=== PATIENT | male | born 1955 | race Caucasian/White ===

== ENCOUNTER 2018-08-30 14:46 | Outpatient (CLI) | payer OTHER ==
--- NOTE | 2018-08-30 15:21 | RAD ---
PA AND LATERAL CHEST: History: Cough. FINDINGS: The heart size is enlarged. The lungs are well expanded without focal areas of consolidation, pneumot horaces, or pleural effusions. No lainey pulmonary edema is noted. There are degenerative changes in t he spine. IMPRESSION: Cardiomegaly. POS: [facility]
== END 2018-08-30 14:47 | disposition home or self-care (01) ==
LOC: BICRAD 14:46
PROVIDERS: ATTEND Physician Assistant
DX: R05 Cough (principal); I51.7 Cardiomegaly
CPT/HCPCS: 71046

== ENCOUNTER 2018-10-27 10:45 | Outpatient (CLI) | payer OTHER ==
--- NOTE | 2018-10-27 12:08 | RAD ---
2 VIEWS CHEST: Date: 10/27/18 COMPARISON: 08/30/18. HISTORY: Dyspnea. FINDINGS: 2 views of the chest show an enlarged but stable cardiomediastinal silhouette. There is no evidence o f consolidation, mass, or pleural effusion. Degenerative changes are seen in the spine. IMPRESSION: No evidence of acute cardiopulmonary disease. POS: [facility]
== END 2018-10-27 10:46 | disposition home or self-care (01) ==
LOC: RAD 10:45
PROVIDERS: ATTEND Internal Medicine
DX: R06.00 Dyspnea, unspecified (principal)
CPT/HCPCS: 71046

== ENCOUNTER 2018-11-05 20:30 | Outpatient (CLI) | payer OTHER | END 2018-11-05 20:31 | disposition home or self-care (01) | LOC: SLEEPLAB 20:30 | PROVIDERS: ATTEND Family Medicine | DX: G47.33 Obstructive sleep apnea (adult) (pediatric) (principal); R06.83 Snoring; I10 Essential (primary) hypertension; G47.10 Hypersomnia, unspecified; K21.9 Gastro-esophageal reflux disease without esophagitis; G47.00 Insomnia, unspecified; E66.9 Obesity, unspecified; Z68.38 Body mass index [BMI] 38.0-38.9, adult | CPT/HCPCS: 95811 ==

== ENCOUNTER 2019-04-19 09:06 | Outpatient (CLI) | payer OTHER ==
[2019-04-19 10:32] LABS: #Eosinphils 0.3 thou/uL (0.0-0.7); #Lymphocytes 1.2 thou/uL (1.20-3.40); #Monocytes 0.6 thou/uL (0.11-0.59); #Neutrophils 5.4 thou/uL (1.40-6.50); %Basophils 0.6 % (0.0-1.0); %Eosinophils 4.2 % (0.0-10.0); %Lymphocytes 16.3 % (21.0-51.0); %Monocytes 8.2 % (0.0-10.0); %Neutrophils 70.7 % (42.0-75.0); Hemoglobin 13.1 g/dL (14.0-18.0); Mean Corpuscular HGB CONC 33.5 g/dL (32.0-36.0); Mean Corpuscular Hemoglobin 28.7 pg (27.0-31.0); Mean Corpuscular Volume 85.6 fL (78.0-98.0); Mean Platelet Volume 7.7 fL (7.4-10.4); Platelet Count 223 thou/uL (130-400); RBC Distribution Width 13.5 % (11.5-14.5); Red Blood Cell (RBC) Count 4.56 mill/uL (4.70-6.10); White Blood Cell (WBC) Count 7.6 thou/uL (4.8-10.8)
[2019-04-19 10:42] LABS: Bacteria/HPF None Seen HPF (None Seen); Bilirubin Negative (Negative); Blood, Urine Trace (Negative); Clarity Clear (Clear); Glucose, Urine (Dipstick) Normal (Negative); Leukocyte 25 Leu/uL (Negative); Nitrite Negative (Negative); Protein, Urine (Dipstick) 30 mg/dL (Neg-Trace); RBC/HPF 0-3 HPF (0-3); Squamous Epithelial None Seen HPF (0-3); Urobilinogen Normal mg/dL (Less than 2)
[2019-04-19 10:49] LABS: Anion Gap 13 mmol/L (10-20); BUN (Urea Nitrogen) 27 mg/dL (8.4-25.7); Calc. Creatinine Clearance 0 mL/min (70-130); Carbon Dioxide 23 mmol/L (23-31); Chloride 109 mmol/L (98-107); Estimated GFR-MDRD 49; Glucose 109 mg/dL (80-115); Potassium 4.4 mmol/L (3.5-5.1); Sodium 141 mmol/L (136-145)
--- NOTE | 2019-04-19 11:05 | RAD ---
PA AND LATERAL VIEWS CHEST: HISTORY: Preop evaluation. FINDINGS: Comparison is made to the exam is made to the exam of 10/27/2018. The heart is enlarged but stable. The lungs are expanded without focal areas of consolidation, pneum othoraces, lainey pulmonary edema, or pleural effusions. Degenerative changes are present in the spin e. IMPRESSION: Stable exam. No radiographic evidence of acute cardiopulmonary process. POS: [facility]
== END 2019-04-19 09:07 | disposition home or self-care (01) ==
LOC: LABBT 09:06
PROVIDERS: ATTEND Orthopaedic Surgery
DX: Z01.818 Encounter for other preprocedural examination (principal); M17.11 Unilateral primary osteoarthritis, right knee
CPT/HCPCS: 71046; 80048; 81001; 85025; 85610; 87081; 93005; 93010

== ENCOUNTER 2019-05-01 08:04 | Day surgery (SDC) | payer OTHER ==
[2019-04-19 09:36] VITALS: BMI 39.0
[2019-05-01] MEDS ORDERED: Sodium Chloride 0.9% 100 ML ONE (08:49)
[2019-05-01] MEDS ORDERED: Tranexamic Acid 1,000 MG/10 ML VIAL ONE (08:49)
[2019-05-01] MEDS ORDERED: Zolpidem Tartrate 5 MG TAB PO PRN ×2 (09:27→13:27)
[2019-05-01] MEDS ORDERED: Promethazine HCl 25 MG/ML VIAL IM PRN ×3 (09:27→14:22)
[2019-05-01] MEDS ORDERED: Acetaminophen 325 MG TAB PO PRN (09:27)
[2019-05-01] MEDS ORDERED: HYDROcodone/Acetaminophen 10/325 mg Tablet PO PRN ×3 (09:27→13:27)
[2019-05-01] MEDS ORDERED: diphenhydrAMINE 25 MG CAP PO PRN (09:27)
[2019-05-01] MEDS ORDERED: Ondansetron PF 4 MG/2 ML Vial IVP PRN ×2 (09:27→13:27)
[2019-05-01] MEDS ORDERED: traMADol HCl 50 MG TAB PO PRN ×3 (09:27→13:27)
[2019-05-01] MEDS ORDERED: Fentanyl 100 MCG/2 ML VIAL ONE ×5 (10:01→14:26)
[2019-05-01] MEDS ORDERED: Midazolam HCl 2 mg/2 ml Vial ONE (10:01)
[2019-05-01] MEDS ORDERED: Ropivacaine 0.2% HCl/PF (40 MG/20 ML VIAL) ONE (11:12)
[2019-05-01] MEDS ORDERED: Ropivacaine 0.5% HCl/PF (150 MG/30 ML VIAL) ONE (11:12)
[2019-05-01] MEDS ORDERED: ePHEDrine 50 MG/ML VIAL ONE (12:44)
[2019-05-01] MEDS ORDERED: Dexamethasone 20 MG/5 ML VIAL ONE (12:44)
[2019-05-01] MEDS ORDERED: Rocuronium Bromide 10 MG/ML (10ML VIAL) ONE (12:44)
[2019-05-01] MEDS ORDERED: Ondansetron PF 4 MG/2 ML Vial ONE (12:44)
[2019-05-01] MEDS ORDERED: Lidocaine 1% PF 5 ML VIAL ONE (12:44)
[2019-05-01] MEDS ORDERED: PROPOFOL 200 MG/20 ML VIAL ONE (12:44)
[2019-05-01] MEDS ORDERED: Glycopyrrolate 0.2 MG/ML 5 ML SYRINGE ONE (12:44)
[2019-05-01] MEDS ORDERED: Ropivacaine HCl/PF 250 ML in Premix Bag 1 BAG NERVE BLCK SCH (13:27)
[2019-05-01] MEDS ORDERED: Fentanyl 100 MCG/2 ML VIAL IV PRN (13:28)
--- NOTE | 2019-05-01 13:41 | OP ---
DATE OF PROCEDURE: 05/01/2019 PREOPERATIVE DIAGNOSIS: End-stage tricompartmental osteoarthritis, right knee. POSTOPERATIVE DIAGNOSIS: End-stage tricompartmental osteoarthritis, right knee. PROCEDURE PERFORMED: Right cruciate sparing computer-assisted navigated cemented right total knee arthroplasty. PRODUCT DEVELOPMENT CONSULTANT: Mannie Pennington PA-C ANESTHESIA: General via LMA augmented with indwelling adductor canal and a single-shot anterior sciatic block. COMPONENTS USED: [facility] Triathlon size 5 cruciate sparing cemented femoral component with a size 5 primary cemented tibial base plate, 9 mm polyethylene fixed bearing insert, and A32 patella button. FINDINGS: End-stage severe degenerative tricompartmental disease, [id number] arthrosis, periarticular osteophyte formation, large serous effusion, and hypertrophic synovium. TOURNIQUET TIME: 57 minutes at 300 mmHg. INPUT: 1200 mL crystalloid. OUTPUT: None. No Camp placed. DRAINS: None. SPECIMENS: None. COMPLICATIONS: None. COUNTS: Correct. ESTIMATED BLOOD LOSS: Less than 100. INDICATION FOR SURGERY: Navi is a 63-year-old white male, who has had progressive right knee pain and problem with standing and walking for the last five to seven years. He has failed conservative management and elected to proceed with total knee arthroplasty as definitive treatment for his pain. PROCEDURE IN DETAIL: After informed consent was obtained in the preoperative holding area, the patient was taken to the operative suite where general anesthesia was induced. Once adequate level of general anesthesia was obtained, the patient was positioned and a well-padded tourniquet was placed around the right proximal thigh. The right lower extremity was then prepped and draped in the usual sterile fashion. Prior to exsanguination, a time-out was called and all members of the surgical team agreed upon site, surgeon, and patient. The extremity was then exsanguinated and the tourniquet was raised. A midline longitudinal incision was then made directly over the patella extending 2 fingerbreadths above the superior pole of the patella and 2 fingerbreadths inferior to the inferior patellar pole of the patella. Deeper subcutaneous layers were dissected sharply and local bleeding was controlled with Bovie electrocautery. A quad tendon longitudinal split was then made sharply and a median parapatellar arthrotomy was carried out both sharp and with Bovie electrocautery, carried down to 1 fingerbreadth medial to the tibial tubercle. The knee was then placed into flexion and the patella was everted nicely, and a copious fat pad ectomy was performed allowing for greater exposure of the tibia. The computer-assisted distal femoral fiducial was then placed and pinned firmly, and the distal femoral cutting guide was pinned firmly into place. The oscillating saw was then used to remove the appropriate amount of bone. The 4-in-1 cutting block was then placed on the distal femur and the oscillating saw was used to remove the appropriate amount of bone off the anterior, posterior, and chamfer cuts. After completion of bone cuts, the anterior cruciate ligament was resected sharply and the posterior cruciate ligament retractor was placed and the tibia was subluxed for better exposure. Partial meniscectomies were carried out, and the tibial computer-assisted fiducial was pinned, and the cutting guide was placed. Oscillating saw was then used to remove the bone, with Hohmann retractors used to take care and protect the collateral ligaments. After the tibial resection was performed, a laminar direct service worker was placed in between the freshened bone cuts. The knee placed at 90 degrees and further bilateral meniscectomies were carried out, and the curved osteotome and curettage were used to remove any excess bone spurs in the posterior compartment. The trial femoral component, tibial baseplate were placed with the appropriate polyethylene trial insert with an appropriate polyethylene spacer and patellar button. The knee was taken through full range of motion with flexion and extension from 0 to 90 degrees and patellar broach squarely in the trochlea without any squinting or subluxation noted. The knee was also stable to varus and valgus stressing at 0, 15, 45, and 90 degrees of flexion. The drawer was negative. All trial components were then removed and the keel punch was used to provide the appropriate defect in the tibia with a mallet. The freshened bone cuts were copiously irrigated with pulsatile lavage of about 1.5 L to remove all excess debris. The freshened bone cuts were then dried with suction and lap sponge. The knee was placed in flexion and retractors were placed to provide access to all bone cuts. Tobramycin-impregnated methyl methacrylate cement was then placed on the freshened bone cuts and implants which were malleted firmly into place. Curettage and Sheridan elevators were used to remove any excess bone cement. The knee was placed into full extension and the patellar button was placed under compression, and the cement was allowed to cure. Once completed, the components were again taken through full range of motion and copious irrigation of the knee was carried out with another liter of normal saline. All components were inspected fully with full range of motion and varus and valgus stressing. There was no laxity noted and full extension was observed clinically. Primary closure was accomplished with #2 interrupted Vicryl stitch of the arthrotomy defect. This was oversewn with a #2 running Quill barbed stitch. The gravitational platelet system was then injected into the arthrotomy prior to closure. The subcutaneous layer was then closed with a running 0 barbed Monocryl stitch and skin closure accomplished with a running subcuticular 3-0 Monocryl barbed Quill stitch and augmented with cement on the skin. Tourniquet was lowered. Good spontaneous return of distal pulses was noted clinically and a sterile dressing was applied to the incision. The procedure was terminated without any complications. The patient was awakened in the operative suite and the was removed, and the patient was taken to the recovery room in stable condition. Job ID: [id number]
--- NOTE | 2019-05-01 14:05 | RAD ---
Exam:2 views right knee HISTORY: Status post arthroplasty COMPARISON: None FINDINGS: Expected postoperative changes in the soft tissues. Right knee arthroplasty is noted. Align ment is near anatomic. IMPRESSION: Findings compatible with right knee arthroplasty.
[2019-05-01] MEDS ORDERED: Ondansetron HCl/PF 4 MG/2 ML Vial IVP PRN (14:22)
[2019-05-01] MEDS ORDERED: Promethazine HCl 25 MG/ML VIAL SLOW IVP PRN (14:22)
[2019-05-01] MEDS: Sodium Chloride 0.9% 1,000 ML IV SCH ×2 (15:00→20:51)
[2019-05-01] MEDS: Ketorolac Tromethamine 30 MG/ML VIAL IVP SCH ×2 (15:01→21:50)
[2019-05-01] MEDS ORDERED: CEFAZOLIN 2 GM in Premix Bag 1 BAG IVPB SCH (17:00)
[2019-05-01] MEDS: CEFAZOLIN 2 GM in Premix Bag 1 BAG IVPB SCH (20:44)
[2019-05-01] MEDS: Aspirin 81 mg Enteric Coated Tablet PO SCH (20:44)
[2019-05-01] MEDS: Senokot S 8.6-50 MG TAB PO SCH (20:46)
[2019-05-01] MEDS: Ferrous Gluconate 324 MG TAB PO SCH (20:47)
[2019-05-01] MEDS: HYDROcodone/Acetaminophen 10/325 mg Tablet PO PRN (21:48)
[2019-05-02] MEDS: CEFAZOLIN 2 GM in Premix Bag 1 BAG IVPB SCH (04:19)
[2019-05-02] MEDS: HYDROcodone/Acetaminophen 10/325 mg Tablet PO PRN ×4 (04:24→22:16)
[2019-05-02] MEDS: Sodium Chloride 0.9% 1,000 ML IV SCH ×2 (05:34→17:54)
[2019-05-02 05:59] LABS: Hemoglobin 11.5 g/dL (14.0-18.0); Mean Corpuscular HGB CONC 33.5 g/dL (32.0-36.0); Mean Corpuscular Hemoglobin 29.4 pg (27.0-31.0); Mean Corpuscular Volume 87.7 fL (78.0-98.0); Mean Platelet Volume 7.6 fL (7.4-10.4); Platelet Count 205 thou/uL (130-400); White Blood Cell (WBC) Count 12.1 thou/uL (4.8-10.8)
[2019-05-02] MEDS: Ketorolac Tromethamine 30 MG/ML VIAL IVP SCH ×3 (06:29→22:14)
[2019-05-02] MEDS: Multivitamin W/ Minerals 1 TAB PO SCH (09:04)
[2019-05-02] MEDS: Aspirin 81 mg Enteric Coated Tablet PO SCH ×2 (09:04→20:44)
[2019-05-02] MEDS: Losartan 25 MG TAB PO SCH (09:04)
[2019-05-02] MEDS: Ferrous Gluconate 324 MG TAB PO SCH ×2 (09:04→20:45)
[2019-05-02] MEDS: Senokot S 8.6-50 MG TAB PO SCH ×2 (09:04→20:45)
[2019-05-02] MEDS: Hydrochlorothiazide 25 MG TAB PO SCH (09:05)
[2019-05-03] MEDS: Sodium Chloride 0.9% 1,000 ML IV SCH ×2 (04:24→09:21)
[2019-05-03] MEDS: HYDROcodone/Acetaminophen 10/325 mg Tablet PO PRN ×3 (04:28→13:15)
[2019-05-03 05:06] LABS: Hemoglobin 10.6 g/dL (14.0-18.0); Mean Corpuscular HGB CONC 32.1 g/dL (32.0-36.0); Mean Corpuscular Hemoglobin 28.5 pg (27.0-31.0); Mean Corpuscular Volume 88.9 fL (78.0-98.0); Mean Platelet Volume 7.7 fL (7.4-10.4); Platelet Count 193 thou/uL (130-400); RBC Distribution Width 13.2 % (11.5-14.5); Red Blood Cell (RBC) Count 3.72 mill/uL (4.70-6.10); White Blood Cell (WBC) Count 9.1 thou/uL (4.8-10.8)
[2019-05-03] MEDS: Ketorolac Tromethamine 30 MG/ML VIAL IVP SCH (05:48)
[2019-05-03] MEDS: Aspirin 81 mg Enteric Coated Tablet PO SCH (09:15)
[2019-05-03] MEDS: Hydrochlorothiazide 25 MG TAB PO SCH (09:15)
[2019-05-03] MEDS: Ferrous Gluconate 324 MG TAB PO SCH (09:15)
[2019-05-03] MEDS: Senokot S 8.6-50 MG TAB PO SCH (09:16)
[2019-05-03] MEDS: Multivitamin W/ Minerals 1 TAB PO SCH (09:16)
[2019-05-03] MEDS: Losartan 25 MG TAB PO SCH (09:16)
[2019-05-03 12:16] VITALS: BP 159/90; TEMP 98
== END 2019-05-03 13:46 | disposition home or self-care (01) ==
LOC: SDC 08:04 → EDSTATUS 08:45 → SJJU 09:27 → SDC 05-03 13:46
PROVIDERS: ATTEND Orthopaedic Surgery
PROC: 0SRC0J9 Replacement of Right Knee Joint with Synthetic Substitute, Cemented, Open Approach (ICD-10-PCS; principal; 2019-05-01)
PROC: 8E0YXBZ Computer Assisted Procedure of Lower Extremity (ICD-10-PCS; principal; 2019-05-01)
DX: M17.0 Bilateral primary osteoarthritis of knee (principal); M25.761 Osteophyte, right knee; I10 Essential (primary) hypertension; G47.33 Obstructive sleep apnea (adult) (pediatric); E66.01 Morbid (severe) obesity due to excess calories; Z68.39 Body mass index [BMI] 39.0-39.9, adult; Z79.899 Other long term (current) drug therapy; Z88.8 Allergy status to other drugs, medicaments and biological substances; Z99.89 Dependence on other enabling machines and devices
CPT/HCPCS: 36415; 85027; C1713; C1776; J0690; J1100; J1885; J2001; J2250; J2405; J2704; J2795; J3010; J3370; J3490; J7050

== ENCOUNTER 2020-04-30 13:35 | Outpatient (CLI) | payer OTHER ==
--- NOTE | 2020-04-30 13:49 | RAD ---
2 views lumbar spine: 04/30/2020 COMPARISON: None HISTORY: Back pain with radiculopathy FINDINGS: No significant anterolisthesis or retrolisthesis is noted. There is bilateral facet hypertr ophy at the L3-4, L4-5, and L5-S1 levels. There is prominent right lateral osteophyte formation at L2-3. Lumbar pedicles appear intact on frontal imaging. No acute fracture. No acute osseous abnormality is seen. IMPRESSION: Multilevel degenerative change. No acute osseous abnormality.
== END 2020-04-30 13:36 | disposition home or self-care (01) ==
LOC: BICRAD 13:35
PROVIDERS: ATTEND Family Medicine
DX: M54.5 Low back pain (principal); M47.816 Spondylosis without myelopathy or radiculopathy, lumbar region
CPT/HCPCS: 72100

== ENCOUNTER 2021-09-24 14:21 | Outpatient (CLI) | payer MEDICARE, BC | END 2021-09-24 14:22 | disposition home or self-care (01) | LOC: DTY/OP 14:21 | PROVIDERS: ATTEND Family Medicine | DX: E11.22 Type 2 diabetes mellitus with diabetic chronic kidney disease (principal); N18.9 Chronic kidney disease, unspecified | CPT/HCPCS: 97802 ==

== ENCOUNTER 2021-09-28 10:53 | Outpatient (CLI) | payer MEDICARE, BC | END 2021-09-28 10:54 | disposition home or self-care (01) | LOC: BICRAD 10:53 | PROVIDERS: ATTEND Otolaryngology Plastic Surgery within the Head & Neck | DX: R05.3 Chronic cough (principal) | CPT/HCPCS: 71046 ==

== ENCOUNTER 2024-02-20 08:12 | Day surgery (SDC) | payer MEDICARE, BC ==
[2024-02-16 12:19] VITALS: BMI 37.6
[2024-02-16 13:08] LABS: Hematocrit 42.5 % (38.8-50.0); Hemoglobin 13.8 g/dL (13.5-17.5); Mean Corpuscular HGB CONC 32.5 g/dL (32.0-36.0); Mean Corpuscular Volume 86.4 fL (81.2-95.1); Platelet Count 252 10x3/uL (150-450); RBC Distribution Width 14.4 % (11.5-14.5); Red Blood Cell (RBC) Count 4.92 10x6/uL (4.32-5.72); White Blood Cell (WBC) Count 8.2 10x3/uL (3.5-10.5)
[2024-02-16 13:17] LABS: Anion Gap 14 mmol/L (10-20); BUN (Urea Nitrogen) 19 mg/dL (8.4-25.7); Calc. Creatinine Clearance 84 mL/min (70-130); Calcium 9.6 mg/dL (7.8-10.44); Carbon Dioxide 24 mmol/L (23-31); Chloride 109 mmol/L (98-107); Estimated GFR 52; Glucose 106 mg/dL (80-115); Potassium 4.5 mmol/L (3.5-5.1); Sodium 142 mmol/L (136-145)
[2024-02-16 13:22] LABS: PTT 32.2 sec (22.0-33.0); Prothrombin Time 11.3 sec (9.5-12.1)
[~2024-02-20 08:12] MED LIST: Lidocaine 1% PF 5 ML VIAL ONE; Midazolam HCl 2 mg/2 ml Vial ONE; PROPOFOL 200 MG/20 ML VIAL ONE; Propofol 500 MG/50 ML VIAL ONE
== END 2024-02-20 09:14 | disposition home or self-care (01) ==
LOC: SDC 08:12
PROVIDERS: ATTEND Internal Medicine Cardiovascular Disease
PROC: B246ZZ4 Ultrasonography of Right and Left Heart, Transesophageal (ICD-10-PCS; principal; 2024-02-20)
DX: I48.0 Paroxysmal atrial fibrillation (principal); Z79.01 Long term (current) use of anticoagulants; Z79.82 Long term (current) use of aspirin
CPT/HCPCS: 80048; 85027; 85610; 85730; 93312; J2250; J2704